=== PATIENT | female | born 1940 | race Caucasian/White ===

== ENCOUNTER → 2017-04-17 | Outpatient (CLI) | payer MEDICARE ==
[~2017-04-17] MED LIST: ASCO10004 PO; BIOT5CAP3 PO; CHOL10003 PO; HYDR-3240 PO; LACT1CAP35 PO; LUTE20CA PO; THYR60TA PO; [UNRECOGNIZED DRUG - OTHER] PO; astragalus PO
== END | disposition home or self-care (01) ==
LOC: CFH 14:15
PROVIDERS: ATTEND Family Medicine
DX: M75.101 Unspecified rotator cuff tear or rupture of right shoulder, not specified as traumatic (principal); M19.011 Primary osteoarthritis, right shoulder; M25.411 Effusion, right shoulder; M94.211 Chondromalacia, right shoulder; M65.811 Other synovitis and tenosynovitis, right shoulder; M85.88 Other specified disorders of bone density and structure, other site

== ENCOUNTER → 2018-03-30 | Outpatient (CLI) | payer MEDICARE ==
[~2018-03-30] MED LIST changes: -LUTE20CA PO; +LUTE20CA2 PO
== END ==
LOC: CFH 10:28
PROVIDERS: ATTEND Family Medicine
DX: Z02.9 Encounter for administrative examinations, unspecified (principal)

== ENCOUNTER → 2018-07-20 | Outpatient (CLI) | payer MEDICARE | END | disposition home or self-care (01) | LOC: CFH 14:18 | PROVIDERS: ATTEND Internal Medicine | DX: I65.23 Occlusion and stenosis of bilateral carotid arteries (principal); R90.82 White matter disease, unspecified; I63.9 Cerebral infarction, unspecified; C71.9 Malignant neoplasm of brain, unspecified | CPT/HCPCS: 70551; 93306; 93880 ==

== ENCOUNTER → 2018-07-23 | Outpatient (CLI) | payer MEDICARE ==
[~2018-07-23] MED LIST changes: +GADOBUTROL 10 MMOL/10 ML PFS ONE
== END | disposition home or self-care (01) ==
LOC: RAD 16:30
PROVIDERS: ATTEND Internal Medicine
DX: C71.9 Malignant neoplasm of brain, unspecified (principal)
CPT/HCPCS: 70552; A9585

== ENCOUNTER → 2018-08-03 | Outpatient (CLI) | payer MEDICARE ==
[~2018-08-03] MED LIST changes: +ATOR20TA9 PO; -GADOBUTROL 10 MMOL/10 ML PFS ONE; +LEVE500T53 PO; +LEVO50TA5 PO; +MULT1TAB60 PO; +OMNIPAQUE 350 MG/ML, 100ML BOTTLE ONE
== END | disposition home or self-care (01) ==
LOC: RAD 12:24
PROVIDERS: ATTEND Neurological Surgery
DX: M47.896 Other spondylosis, lumbar region (principal); R91.8 Other nonspecific abnormal finding of lung field; C71.9 Malignant neoplasm of brain, unspecified; Z90.49 Acquired absence of other specified parts of digestive tract
CPT/HCPCS: 71260; 74177; Q9967

== ENCOUNTER → 2018-08-06 | Outpatient (CLI) | payer MEDICARE ==
[~2018-08-06] MED LIST changes: -OMNIPAQUE 350 MG/ML, 100ML BOTTLE ONE
== END | disposition home or self-care (01) ==
LOC: RAD 13:16
PROVIDERS: ATTEND Neurological Surgery
DX: Z01.812 Encounter for preprocedural laboratory examination (principal); J84.10 Pulmonary fibrosis, unspecified; D43.2 Neoplasm of uncertain behavior of brain, unspecified; R79.1 Abnormal coagulation profile
CPT/HCPCS: 71046; 93005

== ENCOUNTER 2018-08-09 08:00 | Inpatient (IN) | payer MEDICARE ==
[~2018-08-09] VITALS: Ht 162.6 cm; Wt 81.4 kg
[~2018-08-09 08:00] MED LIST changes: -ATOR20TA9 PO; -LEVE500T53 PO; -LEVO50TA5 PO; -MULT1TAB60 PO
[2018-08-09] MEDS ORDERED: MULT1TAB60 PO (11:39)
[2018-08-09] MEDS ORDERED: ATOR20TA37 PO (11:39)
[2018-08-09] MEDS ORDERED: LEVO50TA5 PO (11:39)
[2018-08-09] MEDS ORDERED: LEVE500T53 PO (12:02)
[2018-08-10] MEDS ORDERED: NALOXONE 0.4 MG/ML, 1ML ONE
[2018-08-10] MEDS ORDERED: CEFUROXIME 1.5 GM ONE (06:56)
[2018-08-10] MEDS ORDERED: BACITRACIN ZINC OINT 500U/GM, 0.9 GM ONE (06:56)
[2018-08-10] MEDS ORDERED: HYDROCORTISONE 100 MG INJ. ONE (06:56)
[2018-08-10] MEDS ORDERED: BACITRACIN 50,000 UNIT ONE (06:56)
[2018-08-10] MEDS ORDERED: DEXAMETHASONE 4 MG/ML, 5ML ONE (06:56)
[2018-08-10] MEDS ORDERED: BACITRACIN OINT 500U/GM, 15 GM ONE (06:56)
[2018-08-10] MEDS ORDERED: MANNITOL PMX 20% 0 ML ONE (06:56)
[2018-08-10] MEDS ORDERED: LACTATED RINGERS 1,000 ML IV SCH (07:19)
[2018-08-10] MEDS ORDERED: ONDANSETRON ODT 8 MG PO ONE (07:30)
[2018-08-10] MEDS ORDERED: ACETAMINOPHEN 500 MG TABLET PO ONE (07:30)
[2018-08-10] MEDS ORDERED: GABAPENTIN 300 MG CAPSULE PO ONE (07:30)
[2018-08-10] MEDS ORDERED: REMIFENTANIL 1 MG ONE (10:09)
[2018-08-10] MEDS ORDERED: SUGAMMADEX 200 MG/2 ML IVPush ONE (10:09)
[2018-08-10] MEDS ORDERED: PROPOFOL 50 ML ONE ×2 (10:43→14:16)
[2018-08-10] MEDS ORDERED: MIDAZOLAM 1 MG/ML, 2ML ONE (10:43)
[2018-08-10] MEDS ORDERED: FENTANYL PF 100 MCG/2ML ONE ×2 (10:43→14:23)
[2018-08-10] MEDS ORDERED: LIDOCAINE-MPF 2% ,5ML ONE (10:44)
[2018-08-10] MEDS ORDERED: PROPOFOL 10 MG/ML, 20ML ONE (10:44)
[2018-08-10] MEDS ORDERED: DEXAMETHASONE 4 MG/ML, 1ML ONE ×2 (10:44)
[2018-08-10] MEDS ORDERED: METOCLOPRAMIDE 5 MG/ML, 2ML ONE (10:44)
[2018-08-10] MEDS ORDERED: CEFAZOLIN 1,000 MG ONE ×2 (10:44)
[2018-08-10] MEDS ORDERED: ROCURONIUM 10MG/ML,5ML ONE (10:44)
[2018-08-10] MEDS ORDERED: SUCCINYLCHOLINE 20 MG/ML, 10ML ONE (10:44)
[2018-08-10] MEDS ORDERED: HYDROmorphone 1 MG/ML, 1ML IV PRN (11:30)
[2018-08-10] MEDS ORDERED: LORazepam 2 MG/ML, 1ML IVPush PRN (11:30)
[2018-08-10] MEDS ORDERED: MORPHINE SULFATE 4 MG/ML, 1ML IVPush PRN (11:30)
[2018-08-10] MEDS ORDERED: LABETALOL 5MG/ML, 20ML IV PRN (11:30)
[2018-08-10] MEDS ORDERED: FENTANYL PF 100 MCG/2ML IV PRN (11:30)
[2018-08-10] MEDS ORDERED: ALBUTEROL SULFATE 2.5 MG/3 ML NPPB PRN (11:30)
[2018-08-10] MEDS ORDERED: OXYcodone 5 MG/5 ML ORAL.SOL UDC PO PRN (11:30)
[2018-08-10] MEDS ORDERED: SCOPOLAMINE PATCH, 1.5MG PATCH.TD72 TD PRN (11:30)
[2018-08-10] MEDS ORDERED: hydrALAzine 20 MG/ML, 1ML IV PRN (11:30)
[2018-08-10] MEDS ORDERED: METOCLOPRAMIDE 5 MG/ML, 2ML IV PRN (11:30)
[2018-08-10] MEDS ORDERED: DIPHENHYDRAMINE 50 MG/ML, 1ML IVPush PRN (11:30)
[2018-08-10] MEDS ORDERED: DIAZEPAM 5 MG/ML, 2ML IVPush PRN (11:30)
[2018-08-10] MEDS ORDERED: BUPIVACAINE/PF-EPI 0.5% 1:200K ONE (12:51)
[2018-08-10] MEDS ORDERED: THROMBIN 5,000 UNIT VIAL TP ONE (13:20)
[2018-08-10] MEDS ORDERED: FUROSEMIDE 20 MG/2 ML ONE (14:20)
[2018-08-10] MEDS ORDERED: METOPROLOL 1 MG/ML, 5ML ONE (15:24)
[2018-08-10] MEDS ORDERED: METOPROLOL 1 MG/ML, 5ML IVPush PRN (15:30)
[2018-08-10] MEDS ORDERED: ENALAPRILAT 1.25 MG/ML, 2ML ONE (15:41)
[2018-08-10] MEDS ORDERED: ACETAMINOPHEN 650 MG SUPP PR PRN ×2 (16:00)
[2018-08-10] MEDS ORDERED: HYDROcodone/APAP 5/325 TABLET PO PRN (16:00)
[2018-08-10] MEDS ORDERED: DEXAMETHASONE 4 MG/ML, 1ML IV SCH (16:00)
[2018-08-10] MEDS ORDERED: BISACODYL 10 MG SUPP PR PRN (16:00)
[2018-08-10] MEDS ORDERED: LORazepam 2 MG/ML, 1ML IV PRN (16:00)
[2018-08-10] MEDS ORDERED: morphine SULFATE 10 MG/ML, 1ML IV PRN (16:00)
[2018-08-10] MEDS ORDERED: ONDANSETRON 2MG/ML, 2ML IV PRN (16:00)
[2018-08-10] MEDS ORDERED: DIPHENHYDRAMINE 50 MG/ML, 1ML IV PRN (16:00)
[2018-08-10] MEDS ORDERED: LABETALOL 250 MG in DEXTROSE 5% 200 ML IV PRN (16:00)
[2018-08-10] MEDS ORDERED: MAGNESIUM HYDROXIDE 8%, 30ML UDC PO PRN (16:00)
[2018-08-10] MEDS ORDERED: OXYcodone/APAP 5/325MG TABLET PO PRN (16:00)
[2018-08-10] MEDS ORDERED: ACETAMINOPHEN 325 MG TABLET PO PRN ×2 (16:00)
[2018-08-10] MEDS ORDERED: SODIUM CHLORIDE 1 GM TABLET PO PRN (16:00)
[2018-08-10] MEDS: ENALAPRILAT 1.25 MG/ML, 2ML IV SCH ×2 (16:12→20:00)
[2018-08-10] MEDS: NS + 20MEQ KCL 1,000 ML IV SCH (16:20)
[2018-08-10] MEDS ORDERED: ATROPINE SYRINGE 0.1 MG/ML, 10ML IVPush ONE (16:35)
[2018-08-10] MEDS ORDERED: NOREPINEPHRINE 1 MG/ML, 4ML ONE (16:35)
[2018-08-10] MEDS ORDERED: NOREPINEPHRINE 4 MG in SODIUM CHLORIDE 0.9% 246 ML IV PRN (16:37)
[2018-08-10] MEDS ORDERED: NALOXONE 0.4 MG/ML, 1ML IVPush ONE ×2 (16:40→16:45)
[2018-08-10] MEDS ORDERED: CEFAZOLIN PMX 2GM/50ML 50 ML IVPB SCH (18:00)
[2018-08-10] MEDS: CEFAZOLIN 2,000 MG in SODIUM CHLORIDE 0.9% 50 ML IVPB SCH (18:08)
[2018-08-10] MEDS: DEXAMETHASONE 4 MG/ML, 1ML IV SCH (22:47)
[2018-08-11] MEDS: CEFAZOLIN 2,000 MG in SODIUM CHLORIDE 0.9% 50 ML IVPB SCH ×2 (01:38→10:22)
[2018-08-11 04:00] VITALS: BP 126/55
[2018-08-11] MEDS: ENALAPRILAT 1.25 MG/ML, 2ML IV SCH ×7 (04:00→23:49)
[2018-08-11 04:20] LABS: BASOPHILS # (AUTO) 0.03 x10^3/uL (0-0.1); BASOPHILS % (AUTO) 0 % (0-1); EOSINOPHILS % (AUTO) 0 % (1-7); LYMPHOCYTES # (AUTO) 0.65 x10^3/uL (1-3.4); LYMPHOCYTES % (AUTO) 4 % (22-44); MD NO; MEAN CORPUSCULAR HEMOGLOBIN 31.3 pg (27.0-34.8); MEAN CORPUSCULAR HGB CONC 34.6 g/dL (32.4-35.8); MEAN CORPUSCULAR VOLUME 90.5 fL (80-100); MEAN PLATELET VOLUME 8.9 fL (7.4-10.4); MONOCYTES # (AUTO) 0.27 x10^3/uL (0.2-0.8); MONOCYTES % (AUTO) 2 % (2-9); NEUTROPHILS # (AUTO) 15.03 x10^3/uL (1.8-6.8); NEUTROPHILS % (AUTO) 94 % (42-75); PLATELET COUNT 304 x10^3/uL (130-400); RED BLOOD COUNT 4.26 x10^6/uL (3.82-5.3); RED CELL DISTRIBUTION WIDTH 13.8 % (9.6-15.2)
[2018-08-11] MEDS: DEXAMETHASONE 4 MG/ML, 1ML IV SCH ×4 (04:29→21:51)
[2018-08-11 04:31] LABS: ANION GAP 7 mmol/L (5-15); CALCIUM 8.7 mg/dL (8.5-10.1); CHLORIDE 109 mmol/L (98-107); CREATININE 0.85 mg/dL (0.55-1.02)
[2018-08-11] MEDS: NS + 20MEQ KCL 1,000 ML IV SCH ×3 (05:36→23:50)
[2018-08-11] MEDS: SENNA/DOCUSATE TABLET PO SCH (09:19)
[2018-08-11 19:12] VITALS: BP 133/74
[2018-08-12] VITALS (8 sets, daily range): BP systolic 108–120; BP diastolic 60–71
[2018-08-12] MEDS: ENALAPRILAT 1.25 MG/ML, 2ML IV SCH ×5 (04:00→19:48)
[2018-08-12] MEDS: DEXAMETHASONE 4 MG/ML, 1ML IV SCH ×3 (04:20→19:48)
[2018-08-12 05:26] LABS: MEAN CORPUSCULAR HEMOGLOBIN 31.1 pg (27.0-34.8); MEAN CORPUSCULAR VOLUME 91.3 fL (80-100); MEAN PLATELET VOLUME 9.6 fL (7.4-10.4); PLATELET COUNT 279 x10^3/uL (130-400); RED BLOOD COUNT 4.07 x10^6/uL (3.82-5.3); RED CELL DISTRIBUTION WIDTH 14.2 % (9.6-15.2)
[2018-08-12 05:27] LABS: ANION GAP 6 mmol/L (5-15); CALCIUM 9.1 mg/dL (8.5-10.1); CHLORIDE 111 mmol/L (98-107); CREATININE 0.69 mg/dL (0.55-1.02)
[2018-08-12 05:50] LABS: BASOPHILS # (AUTO) 0.07 x10^3/uL (0-0.1); BASOPHILS % (AUTO) 0 % (0-1); EOSINOPHILS % (AUTO) 0 % (1-7); LYMPHOCYTES # (AUTO) 0.67 x10^3/uL (1-3.4); LYMPHOCYTES % (AUTO) 3 % (22-44); MD SCAN; MONOCYTES # (AUTO) 1.03 x10^3/uL (0.2-0.8); MONOCYTES % (AUTO) 5 % (2-9); NEUTROPHILS # (AUTO) 18.75 x10^3/uL (1.8-6.8); NEUTROPHILS % (AUTO) 91 % (42-75)
[2018-08-12] MEDS: SENNA/DOCUSATE TABLET PO SCH (08:16)
[2018-08-12] MEDS: NS + 20MEQ KCL 1,000 ML IV SCH (15:21)
[2018-08-13] VITALS (7 sets, daily range): BP systolic 102–135; BP diastolic 62–80
[2018-08-13] MEDS: ENALAPRILAT 1.25 MG/ML, 2ML IV SCH ×6 (04:00→20:13)
[2018-08-13] MEDS: NS + 20MEQ KCL 1,000 ML IV SCH ×2 (04:07→16:00)
[2018-08-13] MEDS: DEXAMETHASONE 4 MG/ML, 1ML IV SCH ×3 (04:08→20:12)
[2018-08-13 05:45] LABS: BASOPHILS # (AUTO) 0.01 x10^3/uL (0-0.1); BASOPHILS % (AUTO) 0 % (0-1); EOSINOPHILS % (AUTO) 0 % (1-7); LYMPHOCYTES # (AUTO) 0.88 x10^3/uL (1-3.4); LYMPHOCYTES % (AUTO) 5 % (22-44); MD NO; MEAN CORPUSCULAR HEMOGLOBIN 30.9 pg (27.0-34.8); MEAN CORPUSCULAR HGB CONC 33.6 g/dL (32.4-35.8); MEAN CORPUSCULAR VOLUME 91.8 fL (80-100); MEAN PLATELET VOLUME 9.1 fL (7.4-10.4); MONOCYTES % (AUTO) 6 % (2-9); NEUTROPHILS # (AUTO) 14.34 x10^3/uL (1.8-6.8); NEUTROPHILS % (AUTO) 88 % (42-75); PLATELET COUNT 287 x10^3/uL (130-400); RED BLOOD COUNT 4.06 x10^6/uL (3.82-5.3); RED CELL DISTRIBUTION WIDTH 14.4 % (9.6-15.2)
[2018-08-13 05:57] LABS: ANION GAP 5 mmol/L (5-15); CALCIUM 8.7 mg/dL (8.5-10.1); CHLORIDE 110 mmol/L (98-107); CREATININE 0.57 mg/dL (0.55-1.02)
[2018-08-13] MEDS: SENNA/DOCUSATE TABLET PO SCH (07:39)
[2018-08-14] VITALS (10 sets, daily range): BP systolic 108–138; BP diastolic 67–84
[2018-08-14] MEDS: ENALAPRILAT 1.25 MG/ML, 2ML IV SCH ×6 (04:00→20:00)
[2018-08-14] MEDS: NS + 20MEQ KCL 1,000 ML IV SCH ×2 (04:15→16:18)
[2018-08-14] MEDS: DEXAMETHASONE 4 MG/ML, 1ML IV SCH (04:21)
[2018-08-14 05:15] LABS: BASOPHILS # (AUTO) 0.02 x10^3/uL (0-0.1); BASOPHILS % (AUTO) 0 % (0-1); EOSINOPHILS % (AUTO) 0 % (1-7); LYMPHOCYTES # (AUTO) 1.02 x10^3/uL (1-3.4); LYMPHOCYTES % (AUTO) 8 % (22-44); MD NO; MEAN CORPUSCULAR HEMOGLOBIN 30.8 pg (27.0-34.8); MEAN CORPUSCULAR HGB CONC 33.7 g/dL (32.4-35.8); MEAN CORPUSCULAR VOLUME 91.5 fL (80-100); MEAN PLATELET VOLUME 9.2 fL (7.4-10.4); MONOCYTES # (AUTO) 0.69 x10^3/uL (0.2-0.8); MONOCYTES % (AUTO) 6 % (2-9); NEUTROPHILS # (AUTO) 10.78 x10^3/uL (1.8-6.8); NEUTROPHILS % (AUTO) 86 % (42-75); PLATELET COUNT 317 x10^3/uL (130-400); RED CELL DISTRIBUTION WIDTH 14.4 % (9.6-15.2)
[2018-08-14 05:23] LABS: CHLORIDE 109 mmol/L (98-107)
[2018-08-14 05:28] LABS: ANION GAP 7 mmol/L (5-15); CALCIUM 8.6 mg/dL (8.5-10.1); CREATININE 0.63 mg/dL (0.55-1.02)
[2018-08-14] MEDS: SENNA/DOCUSATE TABLET PO SCH (09:55)
[2018-08-14] MEDS: DEXAMETHASONE 1 MG TABLET PO SCH (17:24)
[2018-08-15] VITALS (7 sets, daily range): BP systolic 118–158; BP diastolic 71–88
[2018-08-15] MEDS: ENALAPRILAT 1.25 MG/ML, 2ML IV SCH ×7 (03:49→20:24)
[2018-08-15] MEDS: NS + 20MEQ KCL 1,000 ML IV SCH ×2 (04:21→16:11)
[2018-08-15 05:46] LABS: BASOPHILS # (AUTO) 0.05 x10^3/uL (0-0.1); BASOPHILS % (AUTO) 0 % (0-1); EOSINOPHILS # (AUTO) 0.01 x10^3/uL (0-0.4); EOSINOPHILS % (AUTO) 0 % (1-7); LYMPHOCYTES # (AUTO) 0.94 x10^3/uL (1-3.4); LYMPHOCYTES % (AUTO) 8 % (22-44); MD NO; MEAN CORPUSCULAR HEMOGLOBIN 31.5 pg (27.0-34.8); MEAN CORPUSCULAR HGB CONC 34.4 g/dL (32.4-35.8); MEAN CORPUSCULAR VOLUME 91.4 fL (80-100); MEAN PLATELET VOLUME 8.9 fL (7.4-10.4); MONOCYTES # (AUTO) 0.35 x10^3/uL (0.2-0.8); MONOCYTES % (AUTO) 3 % (2-9); NEUTROPHILS # (AUTO) 10.02 x10^3/uL (1.8-6.8); NEUTROPHILS % (AUTO) 88 % (42-75); PLATELET COUNT 347 x10^3/uL (130-400); RED BLOOD COUNT 4.55 x10^6/uL (3.82-5.3); RED CELL DISTRIBUTION WIDTH 14.6 % (9.6-15.2)
[2018-08-15 05:52] LABS: ANION GAP 9 mmol/L (5-15); CHLORIDE 107 mmol/L (98-107); CREATININE 0.59 mg/dL (0.55-1.02)
[2018-08-15] MEDS: SENNA/DOCUSATE TABLET PO SCH (07:40)
[2018-08-15] MEDS: DEXAMETHASONE 1 MG TABLET PO SCH ×2 (07:40→16:11)
[2018-08-16] VITALS (8 sets, daily range): BP systolic 107–153; BP diastolic 69–94
[2018-08-16] MEDS: SODIUM CHLORIDE 1 GM TABLET PO PRN ×2 (00:51→19:59)
[2018-08-16] MEDS: ENALAPRILAT 1.25 MG/ML, 2ML IV SCH ×6 (04:30→19:37)
[2018-08-16] MEDS: NS + 20MEQ KCL 1,000 ML IV SCH ×2 (04:30→15:55)
[2018-08-16 05:47] LABS: ANION GAP 8 mmol/L (5-15); CALCIUM 8.6 mg/dL (8.5-10.1); CHLORIDE 105 mmol/L (98-107); CREATININE 0.75 mg/dL (0.55-1.02)
[2018-08-16 06:00] LABS: BASOPHILS # (AUTO) 0.01 x10^3/uL (0-0.1); BASOPHILS % (AUTO) 0 % (0-1); EOSINOPHILS % (AUTO) 0 % (1-7); LYMPHOCYTES # (AUTO) 1.09 x10^3/uL (1-3.4); LYMPHOCYTES % (AUTO) 8 % (22-44); MD NO; MEAN CORPUSCULAR HEMOGLOBIN 31.2 pg (27.0-34.8); MEAN CORPUSCULAR HGB CONC 34.2 g/dL (32.4-35.8); MEAN CORPUSCULAR VOLUME 91.3 fL (80-100); MEAN PLATELET VOLUME 8.7 fL (7.4-10.4); MONOCYTES % (AUTO) 5 % (2-9); NEUTROPHILS # (AUTO) 12.36 x10^3/uL (1.8-6.8); NEUTROPHILS % (AUTO) 87 % (42-75); PLATELET COUNT 385 x10^3/uL (130-400); RED BLOOD COUNT 4.56 x10^6/uL (3.82-5.3); RED CELL DISTRIBUTION WIDTH 14.1 % (9.6-15.2)
[2018-08-16] MEDS: DEXAMETHASONE 1 MG TABLET PO SCH (07:14)
[2018-08-16] MEDS: SENNA/DOCUSATE TABLET PO SCH (07:14)
[2018-08-16] MEDS: LEVETIRACETAM 500 MG TABLET PO SCH ×2 (09:15→19:38)
[2018-08-16] MEDS ORDERED: METH4TAB2 PO (11:36)
[2018-08-16] MEDS ORDERED: LEVE500T53 PO (11:36)
[2018-08-16] MEDS: ATORVASTATIN 20 MG TABLET PO SCH (19:38)
[2018-08-17] VITALS (7 sets, daily range): BP systolic 111–151; BP diastolic 66–82
[2018-08-17] MEDS: ENALAPRILAT 1.25 MG/ML, 2ML IV SCH ×6 (00:58→20:00)
[2018-08-17] MEDS: NS + 20MEQ KCL 1,000 ML IV SCH ×2 (04:33→08:44)
[2018-08-17 05:28] LABS: BASOPHILS # (AUTO) 0.05 x10^3/uL (0-0.1); BASOPHILS % (AUTO) 0 % (0-1); EOSINOPHILS # (AUTO) 0.04 x10^3/uL (0-0.4); EOSINOPHILS % (AUTO) 0 % (1-7); LYMPHOCYTES % (AUTO) 13 % (22-44); MD NO; MEAN CORPUSCULAR HGB CONC 33.9 g/dL (32.4-35.8); MEAN CORPUSCULAR VOLUME 91.6 fL (80-100); MEAN PLATELET VOLUME 8.5 fL (7.4-10.4); MONOCYTES # (AUTO) 0.91 x10^3/uL (0.2-0.8); MONOCYTES % (AUTO) 6 % (2-9); NEUTROPHILS # (AUTO) 11.37 x10^3/uL (1.8-6.8); NEUTROPHILS % (AUTO) 80 % (42-75); PLATELET COUNT 411 x10^3/uL (130-400); RED BLOOD COUNT 4.56 x10^6/uL (3.82-5.3); RED CELL DISTRIBUTION WIDTH 14.1 % (9.6-15.2)
[2018-08-17 05:44] LABS: CHLORIDE 105 mmol/L (98-107)
[2018-08-17 05:51] LABS: ANION GAP 8 mmol/L (5-15); CALCIUM 8.6 mg/dL (8.5-10.1); CREATININE 0.69 mg/dL (0.55-1.02)
[2018-08-17] MEDS: LEVOTHYROXINE 50 MCG TABLET PO SCH (06:33)
[2018-08-17] MEDS: LEVETIRACETAM 500 MG TABLET PO SCH ×2 (08:43→22:11)
[2018-08-17] MEDS: SENNA/DOCUSATE TABLET PO SCH (08:43)
[2018-08-17] MEDS: ATORVASTATIN 20 MG TABLET PO SCH (22:11)
[2018-08-18] VITALS (7 sets, daily range): BP systolic 95–125; BP diastolic 60–84
[2018-08-18] MEDS: ENALAPRILAT 1.25 MG/ML, 2ML IV SCH ×6 (00:10→20:00)
[2018-08-18] MEDS: NS + 20MEQ KCL 1,000 ML IV SCH ×2 (04:13→16:28)
[2018-08-18 06:03] LABS: BASOPHILS # (AUTO) 0.03 x10^3/uL (0-0.1); BASOPHILS % (AUTO) 0 % (0-1); EOSINOPHILS # (AUTO) 0.18 x10^3/uL (0-0.4); EOSINOPHILS % (AUTO) 2 % (1-7); LYMPHOCYTES # (AUTO) 1.97 x10^3/uL (1-3.4); LYMPHOCYTES % (AUTO) 16 % (22-44); MD NO; MEAN CORPUSCULAR HEMOGLOBIN 30.9 pg (27.0-34.8); MEAN CORPUSCULAR HGB CONC 33.7 g/dL (32.4-35.8); MEAN CORPUSCULAR VOLUME 91.6 fL (80-100); MEAN PLATELET VOLUME 8.2 fL (7.4-10.4); MONOCYTES # (AUTO) 0.72 x10^3/uL (0.2-0.8); MONOCYTES % (AUTO) 6 % (2-9); NEUTROPHILS # (AUTO) 9.08 x10^3/uL (1.8-6.8); NEUTROPHILS % (AUTO) 76 % (42-75); PLATELET COUNT 391 x10^3/uL (130-400); RED BLOOD COUNT 4.67 x10^6/uL (3.82-5.3); RED CELL DISTRIBUTION WIDTH 13.9 % (9.6-15.2)
[2018-08-18 06:13] LABS: ANION GAP 7 mmol/L (5-15); CALCIUM 8.5 mg/dL (8.5-10.1); CHLORIDE 107 mmol/L (98-107); CREATININE 0.68 mg/dL (0.55-1.02)
[2018-08-18] MEDS: LEVOTHYROXINE 50 MCG TABLET PO SCH (07:09)
[2018-08-18] MEDS: SENNA/DOCUSATE TABLET PO SCH (07:33)
[2018-08-18] MEDS: LEVETIRACETAM 500 MG TABLET PO SCH ×2 (07:33→20:35)
[2018-08-18] MEDS: ATORVASTATIN 20 MG TABLET PO SCH (20:34)
[2018-08-19 00:20] VITALS: BP 118/75
[2018-08-19 03:57] VITALS: BP 110/71
[2018-08-19] MEDS: ENALAPRILAT 1.25 MG/ML, 2ML IV SCH ×5 (04:00→16:00)
[2018-08-19] MEDS: NS + 20MEQ KCL 1,000 ML IV SCH ×2 (04:02→16:48)
[2018-08-19 04:51] LABS: BASOPHILS # (AUTO) 0.04 x10^3/uL (0-0.1); BASOPHILS % (AUTO) 0 % (0-1); EOSINOPHILS # (AUTO) 0.27 x10^3/uL (0-0.4); EOSINOPHILS % (AUTO) 2 % (1-7); LYMPHOCYTES # (AUTO) 1.82 x10^3/uL (1-3.4); LYMPHOCYTES % (AUTO) 16 % (22-44); MD NO; MEAN CORPUSCULAR HEMOGLOBIN 30.4 pg (27.0-34.8); MEAN CORPUSCULAR HGB CONC 33.5 g/dL (32.4-35.8); MEAN CORPUSCULAR VOLUME 90.6 fL (80-100); MONOCYTES # (AUTO) 0.68 x10^3/uL (0.2-0.8); MONOCYTES % (AUTO) 6 % (2-9); NEUTROPHILS # (AUTO) 8.75 x10^3/uL (1.8-6.8); NEUTROPHILS % (AUTO) 76 % (42-75); PLATELET COUNT 434 x10^3/uL (130-400); RED BLOOD COUNT 4.55 x10^6/uL (3.82-5.3)
[2018-08-19 05:01] LABS: ANION GAP 7 mmol/L (5-15); CALCIUM 8.3 mg/dL (8.5-10.1); CHLORIDE 106 mmol/L (98-107); CREATININE 0.86 mg/dL (0.55-1.02)
[2018-08-19] MEDS: LEVOTHYROXINE 50 MCG TABLET PO SCH (05:50)
[2018-08-19 08:34] VITALS: BP 118/59
[2018-08-19] MEDS: SENNA/DOCUSATE TABLET PO SCH (08:42)
[2018-08-19] MEDS: LEVETIRACETAM 500 MG TABLET PO SCH (08:42)
[2018-08-19 11:57] VITALS: BP 122/76
[2018-08-19 13:13] VITALS: BP 138/78
[2018-08-19 16:21] VITALS: BP 118/71
== END 2018-08-19 18:13 | DRG 25 ==
LOC: ORIP 08-10 06:24 → CCU 08-10 15:16 → 4NOR 08-11 17:22
PROVIDERS: ADMIT Neurological Surgery; ATTEND Neurological Surgery
PROC: 8E09XBZ Computer Assisted Procedure of Head and Neck Region (ICD-10-PCS; 2018-08-10)
PROC: 00B70ZZ Excision of Cerebral Hemisphere, Open Approach (ICD-10-PCS; principal; 2018-08-10 12:00)
DX: D49.6 Neoplasm of unspecified behavior of brain (principal); G93.6 Cerebral edema; R47.01 Aphasia; E78.5 Hyperlipidemia, unspecified; E03.9 Hypothyroidism, unspecified; I95.81 Postprocedural hypotension; R00.1 Bradycardia, unspecified; Z88.8 Allergy status to other drugs, medicaments and biological substances; Z91.018 Allergy to other foods
CPT/HCPCS: 36415; 70450; 70552; 80048; 82803; 82962; 85025; 86850; 86900; 86923; 87081; 88307; 88331; 88341; 88342; 88360; C1713; G0378; J0461; J0690; J0697; J1100; J2250; J2310; J2704; J3010; J3480; J3490; J7509; Q0162; 92523-GN; A4648; C1781; J0330; J0360; J1720; J1940; J2765; J7120